=== PATIENT | male | born 1960 | race Caucasian/White ===

== ENCOUNTER 2017-10-05 07:10 | Day surgery (SDC) | payer BC, OTHER ==
[~2017-10-05 07:10] MED LIST: Lactated Ringers 1,000 ML IV SCH; Lidocaine 1%/Sod Bicarbonate in NS 8.4% 1 ML Syringe IDERM PRN; Sodium Chloride 0.9% 10 ML Syringe FLUSH PRN
--- NOTE | 2017-10-05 07:46 | PCM.PREANE ---
Preanesthetic Assessment - Anesthesia/Transfusion/Family Hx Anesthesia History: Prior Anesthesia Without Reaction Family History of Anesthesia Reaction: No Transfusion History: No Prior Transfusion(s) - Review of Systems General: No Symptoms Pulmonary: No Symptoms Cardiovascular: No Symptoms Gastrointestinal: No Symptoms Neurological: No Symptoms - Physical Assessment NPO Status Date: 10/04/17 NPO Status Time: 23:30 O2 Sat by Pulse Oximetry: 98 Respiratory Rate: 16 Vital Signs: Last Vital Signs Temp 97.9 F 10/05/17 07:15 Pulse 93 10/05/17 07:15 Resp 16 10/05/17 07:15 BP 151/84 H 10/05/17 07:15 Pulse Ox 98 10/05/17 07:15 Height: 6 ft 1 in Weight: 131.995 kg ASA Class: 2 Mental Status: Alert & Oriented x3 Airway Class: Mallampati = 1 Dentition: Reports: Normal Dentition Thyro-Mental Finger Breadths: 3 Mouth Opening Finger Breadths: 3 ROM/Head Extension: Full Lungs: Clear to Auscultation, Normal Respiratory Effort Cardiovascular: Regular Rate, Regular Rhythm - Allergies Allergies/Adverse Reactions: Allergies Allergy/AdvReac Type Severity Reaction Status Date / Time No Known Allergies Allergy Verified 10/04/17 11:49 - Blood Blood Available: No - Acknowledgements Anesthesia Type Planned: MAC Pt an Appropriate Candidate for the Planned Anesthesia: Yes Alternatives and Risks of Anesthesia Discussed w Pt/Guardian: Yes Pt/Guardian Understands and Agrees with Anesthesia Plan: Yes PreAnesthesia Questionnaire HEENT History: Reports: Impaired Vision Cardiovascular History: Reports: High Cholesterol, Hypertension, Other (See Below) Other Cardiovascular History: palpitations- few years ago Respiratory History: Reports: Sleep Apnea (cpap) Gastrointestinal History: Reports: GERD, PUD, Other (See Below) Other Gastrointestinal History: hematochezi, positive FIT, polyp Genitourinary History: Reports: None 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 Musculoskeletal History: Reports: Back Pain, Chronic, Gout, Other (See Below) Other Musculoskeletal History: lumbago Psychiatric History: Reports: None Endocrine/Metabolic History: Reports: None Hematologic History: Reports: Other (See Below) Other Hematologic History: hemochromotosis Immunologic History: Reports: None Oncologic (Cancer) History: Reports: None Dermatologic History: Reports: None - Past Surgical History Head Surgeries/Procedures: Reports: None HEENT Surgical History: Reports: None Respiratory Surgical History: Reports: None GI Surgical History: Reports: Colonoscopy, EGD Female Surgical History: Reports: None Male Surgical History: Reports: None Endocrine Surgical History: Reports: None Neurological Surgical History: Reports: Lumbar Spine, Other (See Below) Other Neurological Surgeries/Procedures: L5 lumbar discectomy Other Musculoskeletal Surgeries/Procedures:: Back surgery Oncologic Surgical History: Reports: None Dermatological Surgical History: Reports: None - SUBSTANCE USE Smoking Status *Q: Never Smoker Tobacco Use Within Last Twelve Months: No Second Hand Smoke Exposure: No Days Per Week of Alcohol Use: 7 Number of Drinks Per Day: 2 ( wine or vodka) Total Drinks Per Week: 14 Recreational Drug Use History: No - HOME MEDS Home Medications: Home Meds Acetaminophen/HYDROcodone [[place] 325-5 MG] 1 - 2 tab PO Q4H PRN 10/04/17 [ History] Alpha Lipoic Acid 100 mg PO DAILY 10/04/17 [History] Aspirin [Halfprin] 81 mg PO DAILY 10/04/17 [History] Chlorthalidone [Chlorthalidone] 12.5 mg PO DAILY 10/04/17 [History] Cyanocobalamin (Vitamin B-12) [Vitamin B-12] 1,000 mcg SQ Q30D 10/04/17 [History ] Ezetimibe [Ezetimibe] 10 mg PO DAILY 10/04/17 [History] Fenofibrate Nanocrystallized [Fenofibrate] 145 mg PO DAILY 10/04/17 [History] Indomethacin 25 mg PO BID PRN 10/04/17 [History] Krill Oil 1,000 mg PO DAILY 10/04/17 [History] Metoprolol Succinate 25 mg PO DAILY 10/04/17 [History] Olmesartan Medoxomil [Olmesartan Medoxomil] 40 mg PO DAILY 10/04/17 [History] Omeprazole Magnesium [Prilosec Otc] 20 mg PO DAILY 10/04/17 [History] Rosuvastatin Calcium [Rosuvastatin Calcium] 40 mg PO DAILY 10/04/17 [History] amLODIPine Besylate [Amlodipine Besylate] 5 mg PO DAILY 10/04/17 [History] - CURRENT (IN HOUSE) MEDS Current Meds: Current Medications Lactated Ringer's (Ringers, Lactated) 1,000 mls @ 125 mls/hr IV ASDIRECTED DAE Last Admin: 10/05/17 07:30 Dose: 125 mls/hr Lidocaine/Sodium Bicarbonate (Buffered Lidocaine 1% In Ns 8.4%) 0.25 ml IDERM ONETIME PRN PRN Reason: Prior to IV Start Last Admin: 10/05/17 07:30 Dose: 0.25 ml Sodium Chloride (Saline Flush) 10 ml FLUSH ASDIRECTED PRN PRN Reason: Keep Vein Open
[2017-10-05] MEDS ORDERED: Lidocaine 1% 4 ML ONE (07:53)
[2017-10-05] MEDS ORDERED: fentaNYL 100 MCG/2 ML SDV ONE (07:54)
[2017-10-05] MEDS ORDERED: Midazolam 1 MG/ML 2 ML SDV ONE (07:54)
[2017-10-05] MEDS ORDERED: Propofol 200 MG/20 ML SDV ONE ×3 (07:54→09:19)
--- NOTE | 2017-10-05 08:42 | PCM.HP ---
H&P History of Present Illness - General Date of Service: 10/05/17 Source of Information: Patient History Limitations: Reports: No Limitations - History of Present Illness Initial Comments - Free Text/Narative: 57 year old male here for positive fecal immunochemical test, hematochezia intermittently, heartburn under good control with pepcid. He has a history of adenomatous polyps, last colonoscopy 5 years ago. He notes no melena, no dysphagia, no weight loss. He has had no chest pain, no dyspnea on exertion. - Related Data Allergies/Adverse Reactions: Allergies Allergy/AdvReac Type Severity Reaction Status Date / Time No Known Allergies Allergy Verified 10/04/17 11:49 Home Medications: Home Meds Acetaminophen/HYDROcodone [[place] 325-5 MG] 1 - 2 tab PO Q4H PRN 10/04/17 [ History] Alpha Lipoic Acid 100 mg PO DAILY 10/04/17 [History] Aspirin [Halfprin] 81 mg PO DAILY 10/04/17 [History] Chlorthalidone [Chlorthalidone] 12.5 mg PO DAILY 10/04/17 [History] Cyanocobalamin (Vitamin B-12) [Vitamin B-12] 1,000 mcg SQ Q30D 10/04/17 [History ] Ezetimibe [Ezetimibe] 10 mg PO DAILY 10/04/17 [History] Fenofibrate Nanocrystallized [Fenofibrate] 145 mg PO DAILY 10/04/17 [History] Indomethacin 25 mg PO BID PRN 10/04/17 [History] Krill Oil 1,000 mg PO DAILY 10/04/17 [History] Metoprolol Succinate 25 mg PO DAILY 10/04/17 [History] Olmesartan Medoxomil [Olmesartan Medoxomil] 40 mg PO DAILY 10/04/17 [History] Omeprazole Magnesium [Prilosec Otc] 20 mg PO DAILY 10/04/17 [History] Rosuvastatin Calcium [Rosuvastatin Calcium] 40 mg PO DAILY 10/04/17 [History] amLODIPine Besylate [Amlodipine Besylate] 5 mg PO DAILY 10/04/17 [History] Past Medical History HEENT History: Reports: Impaired Vision Cardiovascular History: Reports: High Cholesterol, Hypertension, Other (See Below) Other Cardiovascular History: palpitations- few years ago Respiratory History: Reports: Sleep Apnea (cpap) Gastrointestinal History: Reports: GERD, PUD, Other (See Below) Other Gastrointestinal History: hematochezi, positive FIT, polyp Genitourinary History: Reports: None 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 Musculoskeletal History: Reports: Back Pain, Chronic, Gout, Other (See Below) Other Musculoskeletal History: lumbago Psychiatric History: Reports: None Endocrine/Metabolic History: Reports: None Hematologic History: Reports: Other (See Below) Other Hematologic History: hemochromotosis Immunologic History: Reports: None Oncologic (Cancer) History: Reports: None Dermatologic History: Reports: None - Past Surgical History Head Surgeries/Procedures: Reports: None HEENT Surgical History: Reports: None Respiratory Surgical History: Reports: None GI Surgical History: Reports: Colonoscopy, EGD Female Surgical History: Reports: None Male Surgical History: Reports: None Endocrine Surgical History: Reports: None Neurological Surgical History: Reports: Lumbar Spine, Other (See Below) Other Neurological Surgeries/Procedures: L5 lumbar discectomy Other Musculoskeletal Surgeries/Procedures:: Back surgery Oncologic Surgical History: Reports: None Dermatological Surgical History: Reports: None Social & Family History - Tobacco Use Smoking Status *Q: Never Smoker Second Hand Smoke Exposure: No - Caffeine Use Caffeine Use: Reports: None - Alcohol Use Days Per Week of Alcohol Use: 7 Number of Drinks Per Day: 2 ( wine or vodka) Total Drinks Per Week: 14 - Recreational Drug Use Recreational Drug Use: No H&P Review of Systems - Review of Systems: Review Of Systems: See Below General: Reports: No Symptoms Cardiovascular: Reports: No Symptoms Gastrointestinal: Reports: Hematochezia. Denies: Diarrhea, Difficulty Swallowing, Melena Exam - Exam Exam: See Below - Vital Signs Vital Signs: Last Vital Signs Temp 36.6 C 10/05/17 07:15 Pulse 93 10/05/17 07:15 Resp 16 10/05/17 07:47 BP 151/84 H 10/05/17 07:15 Pulse Ox 98 10/05/17 07:47 Weight: 131.995 kg - Exam General: Alert, Oriented Lungs: Clear to Auscultation, Normal Respiratory Effort Cardiovascular: Regular Rate, Regular Rhythm GI/Abdominal Exam: Normal Bowel Sounds, Soft, Non-Tender *Q Meaningful Use (ADM) - VTE *Q VTE Criteria *Q: - Stroke *Q Stroke Criteria *Q: - AMI *Q AMI Criteria *Q: - Problem List (1) GERD (gastroesophageal reflux disease) SNOMED Code(s): 924629239 ICD Code: K21.9 - GASTRO-ESOPHAGEAL REFLUX DISEASE WITHOUT ESOPHAGITIS Status: Acute Current Visit: Yes (2) Positive fecal immunochemical test SNOMED Code(s): 696665856 ICD Code: R19.5 - OTHER FECAL ABNORMALITIES Status: Acute Current Visit: Yes (3) Hematochezia SNOMED Code(s): 937506916 ICD Code: K92.1 - MELENA Status: Acute Current Visit: Yes (4) History of adenomatous polyp of colon SNOMED Code(s): 871301403 ICD Code: Z86.010 - PERSONAL HISTORY OF COLONIC POLYPS Status: Acute Current Visit: Yes Problem List Initiated/Reviewed/Updated: Yes Orders Last 24hrs: Active Orders 24 hr Category Date Time Status Peripheral IV Care [RC] . DIRECTED Care 10/05/17 07:00 Active Verify Patient Consent Obtain [RC] ASDIRECTED Care 10/05/17 07:00 Active Lactated Ringers [Ringers, Lactated] 1,000 ml Med 10/05/17 07:00 Active IV ASDIRECTED Lidocaine 1%/Sod Bicarbonate [Buffered Lidocaine 1% in Med 10/05/17 07:00 Active NS 8.4%] 0.25 ml IDERM ONETIME PRN Sodium Chloride 0.9% [Saline Flush] Med 10/05/17 07:00 Active 10 ml FLUSH ASDIRECTED PRN Medication Administration Instruction [OM.PC] Routine Oth 10/05/17 07:00 Ordered Peripheral IV Insertion Adult [OM.PC] Routine Oth 10/05/17 07:00 Ordered Medication Orders Lactated Ringer's (Ringers, Lactated) 1,000 mls @ 125 mls/hr IV ASDIRECTED DAE Last Admin: 10/05/17 07:30 Dose: 125 mls/hr Lidocaine/Sodium Bicarbonate (Buffered Lidocaine 1% In Ns 8.4%) 0.25 ml IDERM ONETIME PRN PRN Reason: Prior to IV Start Last Admin: 10/05/17 07:30 Dose: 0.25 ml Sodium Chloride (Saline Flush) 10 ml FLUSH ASDIRECTED PRN PRN Reason: Keep Vein Open Assessment/Plan Comment:: Patient has consented for EGD and colonoscopy, possible biopsy and/or polypectomy. Risks/benefits discussed. Proceed with procedure.
--- NOTE | 2017-10-05 09:28 | PCM48HPAN ---
Post Anesthesia Note - EVALUATION WITHIN 48HRS OF ANESTHETIC Vital Signs in Normal Range: Yes Patient Participated in Evaluation: Yes Respiratory Function Stable: Yes Airway Patent: Yes Cardiovascular Function Stable: Yes Hydration Status Stable: Yes Pain Control Satisfactory: Yes Nausea and Vomiting Control Satisfactory: Yes Mental Status Recovered: Yes Pulse Rate: 95 SaO2: 95 Resp Rate: 16 Temperature: 98 F Blood Pressure: 115/57
--- NOTE | 2017-10-05 09:30 | PCM.OPNOTE ---
- General Post-Op/Procedure Note Date of Surgery/Procedure: 10/05/17 Operative Procedure(s): EGD with cold hot snare polypectomy and cold forceps biopsy, Colonoscopy with cold forceps biopsy Pre Op Diagnosis: Positive Fecal Immunochemical Test, GERD, Hematochezia, Personal history of adenomatous colon polyps Post-Op Diagnosis: Gastritis, Esophagitis, Gastric Polyp, Rectal Polyp Anesthesia Technique: MAC Primary Surgeon: Edouard Ervin EBL in mLs: 5 Complications: None Condition: Good Free Text/Narrative:: After patient gave verbal and written consent he was placed on blood pressure and pulse ox monitoring. He was given IV sedation which he tolerated well. The olympus gastroscope was inserted in the oropharynx and advanced the second portion of the duodenum. The duodenum was normal. The stomach had mild to moderate gastritis with an inflammatory polyp noted in the cardia of the stomach approximately 5 mm in diameter. Cold forceps biopsies were taken of the antrum and stomach body. THe inflammatory polyp was removed with hot snare polypectomy. There was good hemostasis. The GE junction was identified and mild to moderate esophagitis was noted. Cold forceps biopsies were taken and there was good hemostasis. The scope was then removed. No complications. The patient was then prepped for colonoscopy. THe olympus colonoscope was inserted per rectum and advanced to the cecum without difficulty. THe ileocecal valve and appendiceal orfice were imaged documenting cecal intubation. The scope was slowly withdrawn. THe prep was good. THe views were good. A 4 mm rectal polyp was noted and removed with cold forceps biopsy. THe scope was then retroflexed and removed. THe patient tolerated the procedure well, no complications.
[2017-10-05] MEDS ORDERED: Acetaminophen/HYDROcodone 325-5 MG Tab PO PRN (09:31)
[2017-10-05] MEDS ORDERED: Indomethacin 25 MG Cap PO PRN (09:31)
[2017-10-05] MEDS ORDERED: Non-Formulary Medication 1 Each (Cyanocobalamin (Vitamin B-12) [Vitamin B-12] 1,000 MCG) SQ SCH (09:45)
[2017-10-05 09:52] VITALS: BP 104/70
[2017-10-06] MEDS ORDERED: Rosuvastatin 10 MG Tab PO SCH (09:00)
[2017-10-06] MEDS ORDERED: Aspirin 81 MG Tab.EC PO SCH (09:00)
[2017-10-06] MEDS ORDERED: Ezetimibe 10 MG Tab PO SCH (09:00)
[2017-10-06] MEDS ORDERED: Metoprolol Succinate 25 MG Tab.ER PO SCH (09:00)
[2017-10-06] MEDS ORDERED: Fenofibrate Nanocrystallized 145 MG Tab PO SCH (09:00)
[2017-10-06] MEDS ORDERED: KRILL OIL 1000 MG PO SCH (09:00)
[2017-10-06] MEDS ORDERED: amLODIPine 5 MG Tab PO SCH (09:00)
[2017-10-06] MEDS ORDERED: Losartan 100 MG Tab PO SCH (09:00)
[2017-10-06] MEDS ORDERED: ALPHA LIPOIC ACID 100 MG PO SCH (09:00)
== END 2017-10-05 10:05 | disposition home or self-care (01) ==
LOC: JD.SDS 07:10
PROVIDERS: ATTEND Family Medicine
DX: K31.7 Polyp of stomach and duodenum (principal); K62.1 Rectal polyp; K29.70 Gastritis, unspecified, without bleeding; K21.0 Gastro-esophageal reflux disease with esophagitis; I10 Essential (primary) hypertension; E78.5 Hyperlipidemia, unspecified; G47.33 Obstructive sleep apnea (adult) (pediatric); Z79.82 Long term (current) use of aspirin; Z79.899 Other long term (current) drug therapy; Z99.89 Dependence on other enabling machines and devices
CPT/HCPCS: 43239; 43251; 45380; J2250; J3010; J7120; 00813; J2704

== ENCOUNTER 2018-01-24 08:11 | Day surgery (SDC) | payer BC ==
[~2018-01-24 08:11] MED LIST changes: +EPINEPHrine 1 MG/ML 30 ML MDV IV ONE; +EPINEPHrine 1 MG/ML SDV ONE; -Lactated Ringers 1,000 ML IV SCH; +Lidocaine 1% 4 ML ONE; +Ropivacaine 0.5% 5 MG/ML 30 ML SDV ONE
[2018-01-24] MEDS ORDERED: Propofol 200 MG/20 ML SDV ONE ×2 (08:21→12:19)
[2018-01-24] MEDS ORDERED: fentaNYL 100 MCG/2 ML SDV ONE ×3 (08:23→11:46)
[2018-01-24] MEDS ORDERED: Lidocaine 1% 4 ML ONE (08:24)
[2018-01-24] MEDS ORDERED: ceFAZolin 1 GM Vial ONE (08:26)
[2018-01-24] MEDS ORDERED: Rocuronium 50 MG/5 ML Vial ONE ×2 (08:26→12:19)
[2018-01-24] MEDS: Lactated Ringers 1,000 ML IV SCH ×3 (08:50→15:55)
[2018-01-24] MEDS ORDERED: Phenylephrine/Normal Saline 100 MCG/ML 10 ML Syringe ONE (09:10)
[2018-01-24] MEDS ORDERED: Neostigmine Methylsulfate 1 MG/ML 5 ML Syringe ONE ×2 (09:25→13:00)
[2018-01-24] MEDS ORDERED: Bupivacaine 0.25% 30 ML SDV ONE (10:02)
[2018-01-24] MEDS ORDERED: Midazolam 1 MG/ML 2 ML SDV ONE (10:09)
--- NOTE | 2018-01-24 10:16 | PCM.PREANE ---
Preanesthetic Assessment - Procedure Proposed Procedure: Right SVA with RCR, SAD - Anesthesia/Transfusion/Family Hx Anesthesia History: Prior Anesthesia Without Reaction Family History of Anesthesia Reaction: No Transfusion History: No Prior Transfusion(s) Additional History: hx of lumbar back surgery - Review of Systems General: No Symptoms Pulmonary: Other (RICARDO with CPAP) Cardiovascular: Other (HTN, CAD, EF 65-70%, palpitations resolved with CPAP use) Gastrointestinal: Other (GERD) Neurological: No Symptoms Other: Reports: None - Physical Assessment NPO Status Date: 01/23/18 NPO Status Time: 23:30 O2 Sat by Pulse Oximetry: 97 Respiratory Rate: 16 Vital Signs: Last Vital Signs Temp 36.4 C 01/24/18 08:30 Pulse 75 01/24/18 08:30 Resp 16 01/24/18 08:30 BP 147/88 H 01/24/18 08:30 Pulse Ox 97 01/24/18 08:30 Height: 1.85 m Weight: 134.717 kg ASA Class: 2 Mental Status: Alert & Oriented x3 Airway Class: Mallampati = 3 Thyro-Mental Finger Breadths: 3 Mouth Opening Finger Breadths: 3 ROM/Head Extension: Full Lungs: Clear to Auscultation, Normal Respiratory Effort Cardiovascular: Regular Rate, Regular Rhythm - Lab Values: Laboratory Last Values MRSA (PCR) Negative 01/23/18 08:37 - Allergies Allergies/Adverse Reactions: Allergies Allergy/AdvReac Type Severity Reaction Status Date / Time No Known Allergies Allergy Verified 01/23/18 12:55 - Blood Blood Available: No Product(s) Available: None - Anesthesia Plan Pre-Op Medication Ordered: None Beta Earline: Metoprolol Med Last Dose Date: 01/24/18 Med Last Dose Time: 05:00 - Acknowledgements Anesthesia Type Planned: General Anesthesia, Regional Block (Right ISNB) Pt an Appropriate Candidate for the Planned Anesthesia: Yes Alternatives and Risks of Anesthesia Discussed w Pt/Guardian: Yes Pt/Guardian Understands and Agrees with Anesthesia Plan: Yes PreAnesthesia Questionnaire HEENT History: Reports: Impaired Vision Cardiovascular History: Reports: CAD, High Cholesterol, Hypertension Other Cardiovascular History: palpitations- few years ago Respiratory History: Reports: Sleep Apnea Gastrointestinal History: Reports: GERD, PUD, Other (See Below) Other Gastrointestinal History: hematochezi, positive FIT, polyp Genitourinary History: Reports: None 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 Musculoskeletal History: Reports: Back Pain, Chronic, Gout, Other (See Below) Other Musculoskeletal History: lumbago Psychiatric History: Reports: None Endocrine/Metabolic History: Reports: None Hematologic History: Reports: Other (See Below) Other Hematologic History: hemochromotosis Immunologic History: Reports: None Oncologic (Cancer) History: Reports: None Dermatologic History: Reports: None - Past Surgical History Head Surgeries/Procedures: Reports: None HEENT Surgical History: Reports: None Respiratory Surgical History: Reports: None GI Surgical History: Reports: Colonoscopy, EGD Female Surgical History: Reports: None Male Surgical History: Reports: None Endocrine Surgical History: Reports: None Neurological Surgical History: Reports: Lumbar Spine, Other (See Below) Other Neurological Surgeries/Procedures: L5 lumbar discectomy Other Musculoskeletal Surgeries/Procedures:: Back surgery Oncologic Surgical History: Reports: None Dermatological Surgical History: Reports: None - SUBSTANCE USE Smoking Status *Q: Former Smoker Recreational Drug Use History: No - HOME MEDS Home Medications: Home Meds Aspirin [Halfprin] 81 mg PO DAILY 10/04/17 [History] Cyanocobalamin (Vitamin B-12) [Vitamin B-12] 1,000 mcg SQ Q30D 10/04/17 [History ] Ezetimibe 10 mg PO DAILY 10/04/17 [History] Indomethacin 25 mg PO BID PRN 10/04/17 [History] Olmesartan Medoxomil 40 mg PO DAILY 10/04/17 [History] Pantoprazole 20 mg PO ACBREAKFAST #90 tab.dr 10/05/17 [Rx] Chlorthalidone 25 mg PO BID 01/23/18 [History] Magnesium Oxide [Magnesium] 500 mg PO DAILY 01/23/18 [History] Metoprolol Succinate [Toprol Xl] 100 mg PO DAILY 01/23/18 [History] Pravastatin Sodium 20 mg PO DAILY 01/23/18 [History] Acetaminophen/HYDROcodone [[place] 325-5 MG] 1 - 2 tab PO Q6H PRN #40 tablet 01/24 [Rx] Cyclobenzaprine [Flexeril] 10 mg PO Q8H PRN #40 tab 01/24/18 [Rx] - CURRENT (IN HOUSE) MEDS Current Meds: Current Medications Lactated Ringer's (Ringers, Lactated) 1,000 mls @ 125 mls/hr IV ASDIRECTED DAE Stop: 01/24/18 23:00 Last Admin: 01/24/18 08:50 Dose: 125 mls/hr Lidocaine/Sodium Bicarbonate (Buffered Lidocaine 1% In Ns 8.4%) 0.25 ml IDERM ONETIME PRN PRN Reason: Prior to IV Start Stop: 01/24/18 18:00 Last Admin: 01/24/18 08:50 Dose: 0.25 ml Sodium Chloride (Saline Flush) 10 ml FLUSH ASDIRECTED PRN PRN Reason: Keep Vein Open Stop: 01/24/18 18:00 Discontinued Medications Bupivacaine HCl (Marcaine 0.25%) Confirm Administered Dose 30 ml .ROUTE .STK- MED ONE Stop: 01/24/18 10:03 Cefazolin Sodium (Ancef) Confirm Administered Dose 2 gm .ROUTE .STK-MED ONE Stop: 01/24/18 08:27 Epinephrine HCl (Adrenalin) 3 mg IV ONETIME ONE Stop: 01/24/18 08:01 Epinephrine HCl (Adrenalin) Confirm Administered Dose 1 mg .ROUTE .STK-MED ONE Stop: 01/24/18 06:33 Fentanyl (Sublimaze) Confirm Administered Dose 100 mcg .ROUTE .STK-MED ONE Stop: 01/24/18 08:24 Glycopyrrolate () Confirm Administered Dose 1 mg .ROUTE .STK-MED ONE Stop: 01/24/18 09:26 Lidocaine HCl (Xylocaine-Mpf 1%) Confirm Administered Dose 4 mls @ as directed .ROUTE .STK-MED ONE Stop: 01/24/18 06:50 Lidocaine HCl (Xylocaine-Mpf 1%) Confirm Administered Dose 4 mls @ as directed .ROUTE .STK-MED ONE Stop: 01/24/18 08:25 Neostigmine Methylsulfate (Neostigmine) Confirm Administered Dose 5 mg .ROUTE .STK-MED ONE Stop: 01/24/18 09:26 Phenylephrine HCl (Phenylephrine In Ns 100 Mcg/Ml) Confirm Administered Dose 1 mg .ROUTE .STK-MED ONE Stop: 01/24/18 09:11 Propofol (Diprivan 20 Ml) Confirm Administered Dose 200 mg .ROUTE .STK-MED ONE Stop: 01/24/18 08:22 Rocuronium [place] (Zemuron) Confirm Administered Dose 50 mg .ROUTE .STK-MED ONE Stop: 01/24/18 08:27 Ropivacaine (Naropin 0.5%) Confirm Administered Dose 30 ml .ROUTE .STK-MED ONE Stop: 01/24/18 06:33
[2018-01-24] MEDS ORDERED: Ondansetron 4 MG/2 ML SDV ONE (12:09)
[2018-01-24] MEDS ORDERED: Dexamethasone 4 MG/ML SDV ONE (12:09)
[2018-01-24] MEDS ORDERED: Ketorolac 30 MG/ML SDV ONE (12:09)
--- NOTE | 2018-01-24 12:23 | PCM.SN ---
- Free Text/Narrative Note: 04/26/2018 [id number] Time out performed. Requested to place right interscale block with ultrasound guidance and nerve stimulator for post op pain control per Dr. Taylor and patient. Preop diagnosis right shoulder pain. Procedure is right shoulder arthrosocpy with rotator cuff repair and decompression. Block assisted by Андрей Germain CRNA Informed consent obtained. Monitors and O2 placed at 2 l per n/c. Patient awake and talking during procedure. Right neck and clavicle area prepped with chlorprep. Sterile gloves, hat and mask worn. US probe with sterile sleeve placed midclavicular with ID of brachial plexus and subclavian artery. Brachial plexus followed cephalad to level of cricoid. Lidocaine 1% local anesthetic injected prior to block placement. 21g 4 inch stimplex needle advanced with US guidance to brachial plexus. Positive forearm response at .3mA with nerve stimulator. Ceased with saline injection.Ropivacaine 0.5% with epi 1:200,000 injected in increments of 5 ml with negative aspiration before each injection to a total of 30 ml. Good spread of local anesthetic seen on US. Patient tolerated procedure well. Vitals stable with no complaints.
[2018-01-24] MEDS ORDERED: Metoprolol Tartrate 5 MG/5 ML SDV ONE (12:26)
--- NOTE | 2018-01-24 13:34 | PCM.POSTAN ---
POST ANESTHESIA ASSESSMENT - MENTAL STATUS Mental Status: Alert - VITAL SIGNS Pulse Rate: 84 SaO2: 96 Resp Rate: 23 Blood Pressure: 134/87 Temperature: 36.6 C - RESPIRATORY Respiratory Status: Respiratory Rate WNL, Airway Patent, O2 Saturation Stable - CARDIOVASCULAR CV Status: Pulse Rate WNL, Blood Pressure Stable - GASTROINTESTINAL GI Status: No Symptoms - PAIN Pain Score: 0 - POST OP HYDRATION Hydration Status: Adequate & Stable
[2018-01-24] MEDS ORDERED: diphenhydrAMINE 50 MG/ML SDV IVPUSH PRN (13:35)
[2018-01-24] MEDS ORDERED: Albuterol/Ipratropium 3.0-0.5 MG/3 ML Neb Soln NEB PRN (13:35)
[2018-01-24] MEDS ORDERED: Ondansetron 4 MG/2 ML SDV IVPUSH PRN (13:35)
[2018-01-24] MEDS ORDERED: fentaNYL 100 MCG/2 ML SDV IVPUSH PRN (13:35)
--- NOTE | 2018-01-24 14:47 | PCM48HPAN ---
Post Anesthesia Note - EVALUATION WITHIN 48HRS OF ANESTHETIC Vital Signs in Normal Range: Yes Patient Participated in Evaluation: Yes Respiratory Function Stable: Yes Airway Patent: Yes Cardiovascular Function Stable: Yes Hydration Status Stable: Yes Pain Control Satisfactory: Yes Nausea and Vomiting Control Satisfactory: Yes Pulse Rate: 84 Resp Rate: 22 Temperature: 36.6 C Blood Pressure: 134/87
[2018-01-24 15:49] VITALS: BP 138/82
--- NOTE | 2018-01-25 13:37 | PCM.OPNOTE ---
- General Post-Op/Procedure Note Date of Surgery/Procedure: 01/24/18 Operative Procedure(s): right shoulder video arthroscopy with medium rotator cuff repair, subacromial decompression and extensive debridement Pre Op Diagnosis: right shoulder rotator cuff tear with impingment Post-Op Diagnosis: Same Anesthesia Technique: General ET Tube, Regional Block Primary Surgeon: Pepe Taylor Anesthesia Provider: Janie Severino Hvac Lead: Yanira Azar EBL in mLs: 5 Complications: None Condition: Good Free Text/Narrative:: Intake & Output 01/24/18 01/25/18 01/25/18 22:59 06:59 14:59 Intake Total 700 Balance 700
--- NOTE | 2018-01-25 14:21 | OR ---
DATE OF OPERATION: 01/24/2018 SURGEON: Pepe Taylor MD OPERATION PERFORMED: Right shoulder video arthroscopy with medium rotator cuff repair, subacromial decompression, and extensive debridement. PREOPERATIVE DIAGNOSIS: Right shoulder rotator cuff tear with impingement. POSTOPERATIVE DIAGNOSIS: Right shoulder rotator cuff tear with impingement. ANESTHESIA: General endotracheal intubation with regional interscalene block. ANESTHESIA PROVIDER: Balwinder Santana. AGRICULTURAL PILOT: Yanira Azar PA-C ESTIMATED BLOOD LOSS: 5 mL. COMPLICATIONS: None. CONDITION: Stable. DESCRIPTION OF PROCEDURE: The patient was identified in the preop holding area. Proper site was marked and identified by the surgeon. The patient was taken back to the operating theater where, after adequate anesthesia, the patient was placed in the lazy left lateral decubitus position. A wedge was placed posteriorly. All bony prominences were well padded. The patient was secured to the table. The right upper extremity was then sterilely prepped and draped in the usual sterile fashion. OR time-out was performed. The patient received 2 g of IV Ancef, and 12 pounds of traction was then applied to the right upper extremity. Standard posterior incision was made. Scope trocar was introduced to the glenohumeral joint. Glenohumeral joint showed synovitis, but otherwise no significant abnormalities. No chondromalacia. The patient was noted to have full-thickness tear of the anterior portion of the supraspinatus. At this time, debridement was done of the synovitis intra-articularly. At this time, attention was turned to the subacromial space. An anterior as well as lateral portal was created with the use of a spinal needle, and a significant debridement of the subacromial space with significant bursitis as well as thickening of the CA ligament was done at this time. Once this was completed, a good bony bleeding bed as well as resection of a small spur at the footprint was resected using a 4- 0 full-radius bur. There was good bony bleeding bed for repair of the rotator cuff. At this time, one 4.75 mm double-loaded Arthrex SwiveLock anchor was then placed for a medial repair. The 2 limbs of FiberTape as well as 2 limbs of FiberWire were then passed. The FiberWire limbs were then tied for a medial row repair. All 4 limbs were then brought out laterally through another 4.75 mm Arthrex SwiveLock anchor which was then placed laterally. Tension was placed on the sutures, and then the anchor was placed. It was found to have adequate watertight repair with good taoism of the footprint along the tear. At this time, a subacromial decompression as well as acromioplasty was then performed, bringing back to a smooth border in the subacromial space. At this time, excess saline was drained from the shoulder. A 3-0 nylon simple suture was used for closure of the skin. The patient was placed in a sterile soft dressing and a pillow sling and sent to PACU in stable condition. MMODAL /[id number]
== END 2018-01-24 15:38 | disposition home or self-care (01) ==
LOC: JD.SDS 08:11
PROVIDERS: ATTEND Orthopaedic Surgery
PROC: 0LQ14ZZ Repair Right Shoulder Tendon, Percutaneous Endoscopic Approach (ICD-10-PCS; principal; 2018-01-24)
PROC: 0RNJ4ZZ Release Right Shoulder Joint, Percutaneous Endoscopic Approach (ICD-10-PCS; 2018-01-24)
DX: M75.101 Unspecified rotator cuff tear or rupture of right shoulder, not specified as traumatic (principal); Z79.82 Long term (current) use of aspirin; Z79.899 Other long term (current) drug therapy
CPT/HCPCS: 29826; 29827; 64415; 87641; J0171; J0690; J1100; J1885; J2001; J2250; J2405; J2710; J2795; J3010; J3490; J7120; J2704

== ENCOUNTER 2019-05-22 17:52 | Emergency (ER) | payer SELFPAY ==
[2019-05-22 18:15] VITALS: BP 188/107; PULSE 105
[2019-05-22] MEDS ORDERED: Sodium Chloride 0.9% 10 ML Syringe FLUSH PRN (18:26)
[2019-05-22] MEDS ORDERED: Ketorolac 30 MG/ML SDV IVPUSH ONE (18:28)
[2019-05-22] MEDS ORDERED: HYDROmorphone 1 MG/ML Syringe IVPUSH ONE (18:29)
[2019-05-22] MEDS ORDERED: Sodium Chloride 0.9% 1,000 ML IV SCH (18:30)
--- NOTE | 2019-05-22 18:49 | EDM.PDOC ---
<Bruce Turner - Last Filed: 05/22/19 18:44> ED HPI GENERAL MEDICAL PROBLEM - General Chief Complaint: Back Pain or Injury Stated Complaint: BACK PAIN Time Seen by Provider: 05/22/19 18:19 Source of Information: Reports: Patient History Limitations: Reports: No Limitations - History of Present Illness INITIAL COMMENTS - FREE TEXT/NARRATIVE: The patient presents with low back pain and bilateral leg pain. He has a bad back. He has had 3 surgeries. The last one was August 2018. He saw his surgeon recently and he is going through PT and then will have surgery again. He has pain in both legs and swelling and warmth to the left leg. He denies fever, chills, cough, chest pain, shortness of breath, abdominal pain, nausea or vomiting. He has no history of DVT or PE. He does have a history of gout. He takes indomethacin and hydrocodone for his pain. That is not helping. He did not fall and hurt his back or legs. This has been going on for a few days. Onset: Gradual Duration: Day(s): Location: Reports: Back, Lower Extremity, Left, Lower Extremity, Right Quality: Reports: Sharp Severity: Severe Improves with: Reports: Immobilization Worsens with: Reports: Movement Context: Denies: Trauma Associated Symptoms: Reports: No Other Symptoms Lower Back Pain Score (Numeric/FACES): 10 - Related Data Allergies Allergy/AdvReac Type Severity Reaction Status Date / Time No Known Allergies Allergy Verified 01/23/18 12:55 Home Meds: Home Meds Aspirin [Halfprin] 81 mg PO DAILY 10/04/17 [History] Cyanocobalamin (Vitamin B-12) [Vitamin B-12] 1,000 mcg SQ Q30D 10/04/17 [History ] Ezetimibe 10 mg PO DAILY 10/04/17 [History] Indomethacin 50 mg PO Q8H PRN 10/04/17 [History] Olmesartan Medoxomil 40 mg PO DAILY 10/04/17 [History] Pantoprazole 20 mg PO ACBREAKFAST #90 tab. 10/05/17 [Rx] Chlorthalidone 25 mg PO DAILY 01/23/18 [History] Magnesium Oxide [Magnesium] 500 mg PO DAILY 01/23/18 [History] Metoprolol Succinate [Toprol Xl] 100 mg PO DAILY 01/23/18 [History] Pravastatin Sodium 20 mg PO DAILY 01/23/18 [History] Acetaminophen/HYDROcodone [[place] 325-5 MG] 1 - 2 tab PO Q6H PRN #40 tablet 01/24 [Rx] Cyclobenzaprine [Flexeril] 10 mg PO Q8H PRN #40 tab 01/24/18 [Rx] Past Medical History HEENT History: Reports: Impaired Vision Cardiovascular History: Reports: CAD, High Cholesterol, Hypertension Other Cardiovascular History: palpitations- few years ago Respiratory History: Reports: Sleep Apnea Gastrointestinal History: Reports: GERD, PUD, Other (See Below) Other Gastrointestinal History: hematochezi, positive FIT, polyp Genitourinary History: Reports: None [employer] History: Reports: None Musculoskeletal History: Reports: Back Pain, Chronic, Gout, Other (See Below) Other Musculoskeletal History: lumbago Psychiatric History: Reports: None Endocrine/Metabolic History: Reports: None Hematologic History: Reports: Other (See Below) Other Hematologic History: hemochromotosis Immunologic History: Reports: None Oncologic (Cancer) History: Reports: None Dermatologic History: Reports: None - Past Surgical History Head Surgeries/Procedures: Reports: None HEENT Surgical History: Reports: None Respiratory Surgical History: Reports: None GI Surgical History: Reports: Colonoscopy, EGD Male Surgical History: Reports: None Endocrine Surgical History: Reports: None Neurological Surgical History: Reports: Lumbar Spine, Other (See Below) Other Neurological Surgeries/Procedures: L5 lumbar discectomy Other Musculoskeletal Surgeries/Procedures:: Back surgery Oncologic Surgical History: Reports: None Dermatological Surgical History: Reports: None Social & Family History - Tobacco Use Smoking Status *Q: Never Smoker - Caffeine Use Caffeine Use: Reports: None - Recreational Drug Use Recreational Drug Use: No ED ROS GENERAL - Review of Systems Review Of Systems: See Below Constitutional: Reports: No Symptoms HEENT: Reports: No Symptoms Respiratory: Reports: No Symptoms Cardiovascular: Reports: No Symptoms Endocrine: Reports: No Symptoms GI/Abdominal: Reports: No Symptoms : Reports: No Symptoms Musculoskeletal: Reports: Back Pain, Other (leg pain) Skin: Reports: No Symptoms ED EXAM,LOWER BACK PAIN/INJURY - Physical Exam Exam: See Below Exam Limited By: No Limitations General Appearance: Alert, No Apparent Distress Ears: Normal External Exam Nose: Normal Inspection Head: Atraumatic, Normocephalic Neck: Normal Inspection Respiratory/Chest: No Respiratory Distress, Lungs Clear, Normal Breath Sounds Cardiovascular: Regular Rate, Rhythm, No Edema, No Murmur GI/Abdominal: Soft, Non-Tender, No Organomegaly, No Mass Back Exam: Other (Pain upon palpation to the low back) Extremities: Other (Bilateral lower leg tenderness. Edema to the left leg with good pulses and sensation distally. The left lower leg has some warmth to it.) Neurological: Alert, No Motor/Sensory Deficits, Oriented x 3 Course - Vital Signs Last Recorded V/S: Last Vital Signs Temp 37.1 C 05/22/19 18:12 Pulse 105 H 05/22/19 18:12 Resp 20 05/22/19 18:12 BP 188/107 H 05/22/19 18:12 Pulse Ox 97 05/22/19 18:12 - Orders/Labs/Meds Orders: Active Orders 24 hr Category Date Time Status Cardiac Monitoring [RC] . DIRECTED Care 05/22/19 18:26 Active EKG Documentation Completion [RC] STAT Care 05/22/19 18:27 Active Peripheral IV Care [RC] . DIRECTED Care 05/22/19 18:27 Active Sodium Chloride 0.9% [Normal Saline] 1,000 ml Med 05/22/19 18:30 Active IV ASDIRECTED Sodium Chloride 0.9% [Saline Flush] Med 05/22/19 18:26 Active 10 ml FLUSH ASDIRECTED PRN Peripheral IV Insertion Adult [OM.PC] Stat Oth 05/22/19 18:26 Ordered Medication Orders Sodium Chloride (Normal Saline) 1,000 mls @ 125 mls/hr IV ASDIRECTED [facility] Last Admin: 05/22/19 18:56 Dose: 125 mls/hr Sodium Chloride (Saline Flush) 10 ml FLUSH ASDIRECTED PRN PRN Reason: Keep Vein Open Labs: Laboratory Tests 05/22/19 05/22/19 05/22/19 Range/Units 18:40 18:40 18:40 WBC 13.59 H (4.23-9.07) K/mm3 RBC 4.66 (4.63-6.08) M/mm3 Hgb 14.3 (13.7-17.5) gm/dl Hct 41.9 (40.1-51.0) % MCV 89.9 (79.0-92.2) fl MCH 30.7 (25.7-32.2) pg MCHC 34.1 (32.2-35.5) g/dl RDW Std Deviation 43.0 (35.1-43.9) fL Plt Count 222 (163-337) K/mm3 MPV 9.1 L (9.4-12.3) fl Neut % (Auto) 72.0 H (34.0-67.9) % Lymph % (Auto) 18.0 L (21.8-53.1) % Banks % (Auto) 8.8 (5.3-12.2) % Eos % (Auto) 0.7 L (0.8-7.0) Baso % (Auto) 0.1 (0.1-1.2) % Neut # (Auto) 9.79 H (1.78-5.38) K/mm3 Lymph # (Auto) 2.45 (1.32-3.57) K/mm3 Banks # (Auto) 1.19 H (0.30-0.82) K/mm3 Eos # (Auto) 0.09 (0.04-0.54) K/mm3 Baso # (Auto) 0.02 (0.01-0.08) K/mm3 Manual Slide Review Normal smear ESR 24 H (0-15) mm/hr Sodium 139 (136-145) mEq/L Potassium 3.0 L (3.5-5.1) mEq/L Chloride 98 (98-107) mEq/L Carbon Dioxide 27 (21-32) mEq/L Anion Gap 17.0 H (5-15) BUN 17 (7-18) mg/dL Creatinine 1.1 (0.7-1.3) mg/dL Est Cr Clr Drug Dosing 83.73 mL/min Estimated GFR (MDRD) > 60 (>60) mL/min BUN/Creatinine Ratio 15.5 (14-18) Glucose 159 H (74-106) mg/dL Uric Acid 11.5 H (3.5-7.2) mg/dL Calcium 8.8 (8.5-10.1) mg/dL Magnesium 1.2 L (1.8-2.4) mg/dl Total Bilirubin 1.2 H (0.2-1.0) mg/dL AST 19 (15-37) U/L ALT 37 (16-63) U/L Alkaline Phosphatase 126 H (46-116) U/L Troponin I < 0.017 (0.00-0.056) ng/mL C-Reactive Protein 7.1 H* (<1.0) mg/dL Total Protein 7.4 (6.4-8.2) g/dl Albumin 3.7 (3.4-5.0) g/dl Globulin 3.7 gm/dL Albumin/Globulin Ratio 1.0 (1-2) Meds: Medications Generic Name Dose Route Start Last Admin Trade Name Freq PRN Reason Stop Dose Admin Sodium Chloride 1,000 mls @ 125 mls/hr 05/22/19 18:30 05/22/19 18:56 Normal Saline IV 125 mls/hr ASDIRECTED DAE Administration Sodium Chloride 10 ml 05/22/19 18:26 Saline Flush FLUSH ASDIRECTED PRN Keep Vein Open Discontinued Medications Generic Name Dose Route Start Last Admin Trade Name Freq PRN Reason Stop Dose Admin Hydromorphone HCl 1 mg 05/22/19 18:29 05/22/19 18:51 Dilaudid IVPUSH 05/22/19 18:30 1 mg ONETIME ONE Administration Hydromorphone HCl 0.5 mg 05/22/19 19:41 05/22/19 19:51 Dilaudid IVPUSH 05/22/19 19:42 0.5 mg ONETIME ONE Administration Ketorolac Tromethamine 30 mg 05/22/19 18:28 05/22/19 18:54 Toradol IVPUSH 05/22/19 18:29 30 mg ONETIME ONE Administration - Re-Assessments/Exams Free Text/Narrative Re-Assessment/Exam: 05/22/19 18:49 I ordered an IV NS at 125mL/hr, dilaudid 1mg IV, toradol 30mg IV, labs, US of left leg, and EKG. Departure - Departure Disposition: Home, Self-Care 01 Clinical Impression: Back pain, Leg pain, bilateral, History of gout - Discharge Information Referrals: Balwinder Rocha Jr, MD [Primary Care Provider] - Forms: ED Department Discharge Additional Instructions: Return to the emergency room with any questions problems or worsening symptoms. Follow-up with her back surgeon as scheduled. Follow-up with physical therapy is arranged. Increase your hydrocodone to 1 or 2 every 6 hours as needed for pain <Rafael Shelley - Last Filed: 05/22/19 21:09> Course - Re-Assessments/Exams Free Text/Narrative Re-Assessment/Exam: 05/22/19 19:43 Lower leg Doppler has been done results pending patient is still having pretty significant pain has not had much pain relief will give another half milligram of Dilaudid. 05/22/19 21:04 We'll have patient increase his hydrocodone to 1 or 2 4 times a day. He has a pending back surgery, he needs to do 3 more rounds of physical therapy before he gets a stent. Lower leg Dopplers are negative on my exam I can't really find any definitive gout. He takes indomethacin as needed and has been on. Patient agrees with this plan and is willing to give it a try. Departure - Departure Time of Disposition: 21:06
[2019-05-22] MEDS ORDERED: HYDROmorphone 0.5 MG/0.5 ML Syringe IVPUSH ONE (19:41)
--- NOTE | 2019-05-22 19:48 | US ---
Left lower extremity deep venous ultrasound: Duplex and color Doppler imaging was obtained of the left common femoral, proximal greater saphenous, superficial femoral, popliteal, posterior tibial and peroneal veins. Right common femoral vein is also evaluated. Comparison: No prior venous imaging is available. Findings: Normal phasic flow, augmentation and compression is seen. Impression: 1. No evidence of deep venous thrombosis within the left lower extremity or within the right common femoral vein. Diagnostic code #1
== END 2019-05-22 21:25 | disposition home or self-care (01) ==
LOC: JD.ED 17:52
DX: M54.5 Low back pain (principal); M79.605 Pain in left leg; M79.604 Pain in right leg; I25.10 Atherosclerotic heart disease of native coronary artery without angina pectoris; I10 Essential (primary) hypertension; E78.00 Pure hypercholesterolemia, unspecified; K21.9 Gastro-esophageal reflux disease without esophagitis; Z79.82 Long term (current) use of aspirin; Z79.899 Other long term (current) drug therapy; Z87.39 Personal history of other diseases of the musculoskeletal system and connective tissue
CPT/HCPCS: 36415; 80053; 83735; 84484; 84550; 85025; 85652; 86140; 93005; 93971; 96361; 96374; 96375; 96376; 99284; J1170; J1885; J7040

== ENCOUNTER 2020-06-17 03:45 | Emergency (ER) | payer BC, OTHER ==
--- NOTE | 2020-06-17 03:58 | EDM.PDOC ---
ED HPI GENERAL MEDICAL PROBLEM - General Chief Complaint: Respiratory Problem Stated Complaint: covid pos sob Time Seen by Provider: 06/17/20 03:58 - History of Present Illness INITIAL COMMENTS - FREE TEXT/NARRATIVE: 60-year-old male presents the emergency room with shortness of breath. Patient has had a progressively worsening illness since the seventh of this month. This last Sunday he was diagnosed with Covid. His condition is gradually worsened over time. He woke up this morning short of breath checked his pulse ox at home and he was 78%. On arrival here he is 86%. Patient has lost taste and smell since the onset of his illness and it has not returned. He has some chest discomfort especially with coughing. Patient is treated for hypertension and hyperlipidemia he takes an aspirin a day. He denies any heart problems in the past - Related Data Allergies Allergy/AdvReac Type Severity Reaction Status Date / Time No Known Allergies Allergy Verified 06/17/20 04:00 ED ROS GENERAL - Review of Systems Review Of Systems: See Below Constitutional: Reports: Chills, Diaphoresis HEENT: Reports: No Symptoms Respiratory: Reports: Shortness of Breath, Pleuritic Chest Pain, Cough Cardiovascular: Reports: Chest Pain. Denies: Edema, Palpitations GI/Abdominal: Reports: No Symptoms : Reports: No Symptoms Musculoskeletal: Reports: Other (He is achy all over) Skin: Reports: No Symptoms Neurological: Reports: No Symptoms Psychiatric: Reports: No Symptoms Hematologic/Lymphatic: Reports: No Symptoms Immunologic: Reports: No Symptoms ED EXAM, GENERAL - Physical Exam Exam: See Below Exam Limited By: No Limitations General Appearance: Alert, Obese, Other (Patient has some shortness of breath deep breathing initiates coughing) Eye Exam: Bilateral Eye: Normal Inspection, PERRL Ears: Normal External Exam, Normal Canal, Hearing Grossly Normal, Normal TMs Nose: Normal Inspection, Normal Mucosa, No Blood Throat/Mouth: Normal Inspection, Normal Lips, Normal Teeth Neck: Normal Inspection, Supple, Non-Tender. No: Lymphadenopathy (L), Lymphadenopathy (R) Respiratory/Chest: Decreased Breath Sounds (Especially in the bases) Cardiovascular: Regular Rate, Rhythm, No Edema, No Murmur GI/Abdominal: Normal Bowel Sounds, Soft, Non-Tender Back Exam: Normal Inspection. No: CVA Tenderness (L), CVA Tenderness (R) Extremities: Normal Inspection, No Pedal Edema Neurological: Alert, Oriented, Normal Cognition Skin Exam: Warm, Dry, Intact #1 Interpretation EKG Date: 06/17/20 Rhythm: Other (Borderline sinus tachycardia) Rate (Beats/Min): 105 P-Wave: Present (Borderline first-degree AV block) QRS: Other (Waves present inferior leads III and aVF) ST-T: Normal QT: Normal Comparison: NA - No Prior EKG Course - Vital Signs Last Recorded V/S: Last Vital Signs Temp 37.0 C 06/17/20 03:58 Pulse 103 H 06/17/20 03:58 Resp 22 H 06/17/20 03:58 BP 129/85 06/17/20 03:58 Pulse Ox 86 L 06/17/20 03:58 - Orders/Labs/Meds Orders: Active Orders 24 hr Category Date Time Status EKG Documentation Completion [RC] STAT Care 06/17/20 04:15 Active Chest 1V Frontal [CR] Stat Exams 06/17/20 04:14 Taken Labs: Laboratory Tests 06/17/20 06/17/20 06/17/20 Range/Units 04:05 04:05 04:05 WBC 6.07 (4.23-9.07) K/mm3 RBC 4.44 L (4.63-6.08) M/mm3 Hgb 14.3 (13.7-17.5) gm/dl Hct 42.3 (40.1-51.0) % MCV 95.3 H (79.0-92.2) fl MCH 32.2 (25.7-32.2) pg MCHC 33.8 (32.2-35.5) g/dl RDW Std Deviation 46.0 H (35.1-43.9) fL Plt Count 171 (163-337) K/mm3 MPV 9.4 (9.4-12.3) fl Neutrophils % (Manual) 0 L (40-60) % Band Neutrophils % 58 H (0-10) % Lymphocytes % (Manual) 34 (20-40) % Atypical Lymphs % 0 % Monocytes % (Manual) 6 (2-10) % Eosinophils % (Manual) 1 (0.8-7.0) % Basophils % (Manual) 1 (0.2-1.2) Platelet Estimate Adequate RBC Morph Comment Normal PT 10.9 (9.7-12.0) SECONDS INR 1.02 APTT 30.5 (21.7-31.4) SECONDS D-Dimer, Quantitative (0.19-0.50) mg/L Sodium 137 (136-145) mEq/L Potassium 3.6 (3.5-5.1) mEq/L Chloride 101 (98-107) mEq/L Carbon Dioxide 24 (21-32) mEq/L Anion Gap 15.6 H (5-15) BUN 13 (7-18) mg/dL Creatinine 1.2 (0.7-1.3) mg/dL Est Cr Clr Drug Dosing 74.91 mL/min Estimated GFR (MDRD) > 60 (>60) mL/min BUN/Creatinine Ratio 10.8 L (14-18) Glucose 143 H (74-106) mg/dL Calcium 8.5 (8.5-10.1) mg/dL Ferritin (26-388) ng/ml Total Bilirubin 0.7 (0.2-1.0) mg/dL AST 44 H (15-37) U/L ALT 58 (16-63) U/L Alkaline Phosphatase 89 (46-116) U/L Lactate Dehydrogenase 268 H (85-227) U/L Troponin I < 0.017 (0.00-0.056) ng/mL Total Protein 7.3 (6.4-8.2) g/dl Albumin 3.4 (3.4-5.0) g/dl Globulin 3.9 gm/dL Albumin/Globulin Ratio 0.9 L (1-2) 06/17/20 06/17/20 Range/Units 04:05 04:05 WBC (4.23-9.07) K/mm3 RBC (4.63-6.08) M/mm3 Hgb (13.7-17.5) gm/dl Hct (40.1-51.0) % MCV (79.0-92.2) fl MCH (25.7-32.2) pg MCHC (32.2-35.5) g/dl RDW Std Deviation (35.1-43.9) fL Plt Count (163-337) K/mm3 MPV (9.4-12.3) fl Neutrophils % (Manual) (40-60) % Band Neutrophils % (0-10) % Lymphocytes % (Manual) (20-40) % Atypical Lymphs % % Monocytes % (Manual) (2-10) % Eosinophils % (Manual) (0.8-7.0) % Basophils % (Manual) (0.2-1.2) Platelet Estimate RBC Morph Comment PT (9.7-12.0) SECONDS INR APTT (21.7-31.4) SECONDS D-Dimer, Quantitative 0.63 H (0.19-0.50) mg/L Sodium (136-145) mEq/L Potassium (3.5-5.1) mEq/L Chloride (98-107) mEq/L Carbon Dioxide (21-32) mEq/L Anion Gap (5-15) BUN (7-18) mg/dL Creatinine (0.7-1.3) mg/dL Est Cr Clr Drug Dosing mL/min Estimated GFR (MDRD) (>60) mL/min BUN/Creatinine Ratio (14-18) Glucose (74-106) mg/dL Calcium (8.5-10.1) mg/dL Ferritin 354 (26-388) ng/ml Total Bilirubin (0.2-1.0) mg/dL AST (15-37) U/L ALT (16-63) U/L Alkaline Phosphatase (46-116) U/L Lactate Dehydrogenase (85-227) U/L Troponin I (0.00-0.056) ng/mL Total Protein (6.4-8.2) g/dl Albumin (3.4-5.0) g/dl Globulin gm/dL Albumin/Globulin Ratio (1-2) Meds: Medications Discontinued Medications Generic Name Dose Route Start Last Admin Trade Name Demetrius PRN Reason Stop Dose Admin Dexamethasone 6 mg 06/17/20 05:46 Decadron IVPUSH 06/17/20 05:47 ONETIME ONE Enoxaparin Sodium 40 mg 06/17/20 05:46 Lovenox SUBCUT 06/17/20 05:47 ONETIME ONE Remdesivir 200 mg/ Sodium 250 mls @ 250 mls/hr 06/17/20 05:46 Chloride IV 06/17/20 05:47 ONETIME ONE - Re-Assessments/Exams Free Text/Narrative Re-Assessment/Exam: 06/17/20 06:09 Chest x-ray shows bilateral patchy infiltrates consistent with acute bilateral pneumonia. The patient is maintaining saturations in the low 90s to mid 90s on 2 L without difficulty. The patient really needs to be admitted with his hypoxemia. [facility] has no beds patient's case was discussed with Dr. Abdullahi hospitalist at [facility] who is kind enough to accept the patient. At his recommendation that the patient be started on room Remcyclovir 200 mg the Lovenox 40 mg subcu and dexamethasone 6 mg IV. These have all been ordered. Departure - Departure Time of Disposition: 05:46 Disposition: DC/Tfer to [facility] 02 Clinical Impression: Pneumonia due to COVID-19 virus - Discharge Information Referrals: Balwinder Rocha Jr, MD [Primary Care Provider] - Forms: ED Department Discharge Sepsis Event Note (ED) - Focused Exam Vital Signs: Vital Signs Temp Pulse Resp BP Pulse Ox 06/17/20 03:58 37.0 C 103 H 22 H 129/85 86 L - My Orders Last 24 Hours: My Active Orders 06/17/20 04:14 Chest 1V Frontal [CR] Stat 06/17/20 04:15 EKG Documentation Completion [RC] STAT - Assessment/Plan Last 24 Hours: My Active Orders 06/17/20 04:14 Chest 1V Frontal [CR] Stat 06/17/20 04:15 EKG Documentation Completion [RC] STAT
[2020-06-17] MEDS ORDERED: REMDESIVIR 200 MG in Sodium Chloride 0.9% 250 ML IV ONE (05:46)
[2020-06-17] MEDS ORDERED: Enoxaparin 40 MG/0.4 ML Syringe SUBCUT ONE (05:46)
[2020-06-17] MEDS ORDERED: Dexamethasone 10 MG/ML SDV IVPUSH ONE (05:46)
[2020-06-17 06:48] VITALS: BP 119/79; PULSE 101
--- NOTE | 2020-06-17 09:26 | CR ---
PROCEDURE INFORMATION: Exam: XR Chest, 1 View Exam date and time: 06/17/2020 4:16 AM Age: 60 years old Clinical indication: Shortness of breath; Patient HX: Covid positive, SOB TECHNIQUE: Imaging protocol: XR of the chest Views: 1 view. COMPARISON: No relevant prior studies available. FINDINGS: Lungs: Acute appearing bilateral lung infiltrates consistent with bilateral pneumonia. Pleural space: Unremarkable. No pleural effusion. No pneumothorax. Heart/Mediastinum: Unremarkable. No cardiomegaly. Bones/joints: Unremarkable. IMPRESSION: Acute bilateral pneumonia Thank you for allowing us to participate in the care of your patient. Dictated and Authenticated by: Shiraz Em MD 06/17/2020 6:06 AM Central Time ([place] & [place]) MARTINA
== END 2020-06-17 08:15 ==
LOC: JD.ED 03:45 → MERGE 03:45 → JD.ED 08:15
DX: U07.1 COVID-19 (principal); J12.89 Other viral pneumonia
CPT/HCPCS: 36415; 71045; 80053; 82728; 83615; 84484; 85007; 85027; 85379; 85610; 85730; 93005; 96365; 96372; 96375; 99285; J1100; J1650; J7050; 93010; 99284